=== PATIENT | male | born 1945 | race Two or more races ===

== ENCOUNTER 2019-06-20 12:45 | Outpatient (CLI) | payer MEDICARE, BC | END 2019-06-20 23:59 | disposition home or self-care (01) | LOC: WOU 12:45 | PROVIDERS: ATTEND Podiatrist Foot & Ankle Surgery | DX: L89.893 Pressure ulcer of other site, stage 3 (principal); L84 Corns and callosities; I87.2 Venous insufficiency (chronic) (peripheral); M21.171 Varus deformity, not elsewhere classified, right ankle; R60.0 Localized edema; M20.41 Other hammer toe(s) (acquired), right foot; I10 Essential (primary) hypertension; Z87.891 Personal history of nicotine dependence | CPT/HCPCS: 87070; 87077; 87186; G0463 ==

== ENCOUNTER 2019-06-27 11:21 | Outpatient (CLI) | payer MEDICARE, BC | END 2019-06-27 23:59 | disposition home or self-care (01) | LOC: MRI 11:21 | PROVIDERS: ATTEND Podiatrist Foot & Ankle Surgery | DX: L97.519 Non-pressure chronic ulcer of other part of right foot with unspecified severity (principal); M19.071 Primary osteoarthritis, right ankle and foot | CPT/HCPCS: 73718-TC ==

== ENCOUNTER 2021-01-26 07:57 | Outpatient (CLI) | payer MEDICARE, BC | END 2021-01-26 23:59 | disposition home or self-care (01) | LOC: LAB 07:57 | PROVIDERS: ATTEND Podiatrist Foot & Ankle Surgery | DX: Z01.812 Encounter for preprocedural laboratory examination (principal); Z20.822 Contact with and (suspected) exposure to COVID-19 | CPT/HCPCS: C9803; U0003 ==

== ENCOUNTER 2021-01-29 06:09 | Inpatient (IN) | payer MEDICARE, BC ==
[~2021-01-29] VITALS: Ht 170.2 cm; Wt 94.3 kg
--- NOTE | 2021-01-29 06:45 | NUR ---
MS RN: DAY SURGERY Patient arrived to unit, schedule for Day surgery today. Patient is A/O x4. Right foot with DIAZ wrap. Patient consented procedure- Debridement wound Right foot. Procedure checklist completed with the patient. Patient transferred to OR via bed accompanied by transporter. Report given to JUAN CARLOS Mcnair for possible admission post surgery.
[2021-01-29] MEDS ORDERED: ANESTHESIA TRAY IN PYXIS 1 EA TRAY MC ONE (07:02)
[2021-01-29] MEDS ORDERED: BUPIVACAINE 0.5 % PF 150 MG/30 ML VIAL ONE (07:03)
[2021-01-29] MEDS ORDERED: VANCOMYCIN 1 GM VIAL ONE (07:03)
[2021-01-29] MEDS ORDERED: LIDOCAINE HCL/MPF 1% 30 ML VIAL IJ ONE (07:03)
[2021-01-29] MEDS ORDERED: ROCURONIUM BROMIDE 50 MG/5 ML ONE (07:32)
[2021-01-29] MEDS ORDERED: FENTANYL PF 100MCG/2ML AMPUL ONE ×2 (07:32→07:33)
--- NOTE | 2021-01-29 07:38 | NUR ---
MS/RN OPENING NOTES RECEIVED REPORT FROM EDWARD RANGEL SOLAR ENERGY INSTALLATION MANAGER. PATIENT IS OUT IN THE UNIT FOR SURGERY.
[2021-01-29] MEDS ORDERED: LISI40TA13 PO (07:45)
[2021-01-29] MEDS ORDERED: HYDR25TA4 PO (07:45)
[2021-01-29] MEDS ORDERED: DESV50TA20 PO (07:45)
[2021-01-29] MEDS ORDERED: ALLO300T2 PO (07:45)
[2021-01-29] MEDS ORDERED: ANAS1TAB50 PO (07:45)
[2021-01-29] MEDS ORDERED: TAMS-12 PO (07:45)
[2021-01-29] MEDS ORDERED: TOBRAMYCIN 80 MG/2 ML VIAL ONE ×2 (07:51→07:52)
[2021-01-29] MEDS ORDERED: GENTAMICIN 80 MG/2 ML VIAL ONE (09:10)
[2021-01-29] MEDS ORDERED: HOME MED MISCELLANEOUS PO SCH (09:20)
[2021-01-29] MEDS ORDERED: ALBU8.5H8 IH (10:42)
[2021-01-29] MEDS ORDERED: AZEL137S7 NS (10:42)
[2021-01-29] MEDS ORDERED: TEST100V5 IM (10:42)
[2021-01-29] MEDS ORDERED: FLUT16SP NS (10:42)
[2021-01-29] MEDS ORDERED: HYDR-3980 PO (10:42)
[2021-01-29] MEDS ORDERED: FAMO20TA8 PO (10:42)
--- NOTE | 2021-01-29 11:01 | NUR ---
MS/RN NOTES RECEIVED REPORT FROM ANGIE ALIGNMENT SPECIALIST. PATIENT IS ON ROOM AIR SATURATION 99%. PATIENT IN NO APPARENT RESPIRATORY DISTRESS NOTED. NO COMPLAINED OF PAIN NOTED AT THIS TIME. POST OP ASSESSMENT WAS DONE. VITAL SIGN BP 113/70 P 90 TEMP 97.8. MEDICATIONS WAS FAXED BY ANGIE ALIGNMENT SPECIALIST AT PHARMACY. DOCTOR ALEAH ORDER VITAL SIGN ROUTINE ACTIVITY ELEVATE RIGHT FOOT. WILL CONTINUE TO MONITOR.
[2021-01-29] MEDS ORDERED: HYDROCODONE/APAP 5/325MG TABLET PO PRN ×2 (11:30→12:30)
[2021-01-29] MEDS ORDERED: ONDANSETRON HCL/PF 4 MG/2 ML VIAL IVP PRN ×2 (11:30→12:30)
[2021-01-29] MEDS ORDERED: MORPHINE SULFATE INJ 2 MG/ML DISP.SYRIN IV PRN (11:30)
[2021-01-29] MEDS ORDERED: ZOLPIDEM TARTRATE 5 MG TABLET PO PRN (12:30)
[2021-01-29] MEDS ORDERED: ACETAMINOPHEN 325 MG TABLET PO PRN (12:30)
[2021-01-29] MEDS ORDERED: HYDROCODONE/APAP 10/325MG TABLET PO PRN (12:30)
[2021-01-29] MEDS ORDERED: [UNRECOGNIZED DRUG - OTHER] IM SCH (12:30)
[2021-01-29] MEDS ORDERED: MAG HYDROX/AL HYDROX/SIMETH 30 ML UDC PO PRN (12:30)
[2021-01-29] MEDS ORDERED: AZELASTINE NASAL SPRAY 30 ML BOTTLE NS SCH (12:30)
[2021-01-29] MEDS ORDERED: ALBUTEROL SULFATE INH 18 GM HFA.AER.AD IH PRN (12:30)
[2021-01-29] MEDS ORDERED: MAGNESIUM HYDROXIDE 30 ML UDC PO PRN (12:30)
[2021-01-29] MEDS ORDERED: Z GUARD REMEDY 2 OZ OINT TP PRN (12:30)
[2021-01-29] MEDS ORDERED: TESTOSTERONE CYPIONATE IM SCH (12:30)
[2021-01-29] MEDS ORDERED: FLUTICASONE PROPIONATE 16 GM BOTTLE NS PRN (12:30)
[2021-01-29] MEDS ORDERED: PIPERACILLIN /TAZOBACTAM 3.375 G in IV D5W 100 ML IV SCH (13:00)
[2021-01-29 14:35] LABS: CALCIUM, SERUM 8.6 mg/dL (8.5-10.1); CARBON DIOXIDE 26 mmol/L (21-32); CHLORIDE 105 mmol/L (98-107); CREATININE 1.7 mg/dL (0.6-1.3); GLUCOSE 174 mg/dL (74-106); POTASSIUM 4.9 mmol/L (3.5-5.1); SODIUM SERUM 140 mmol/L (136-145); UREA NITROGEN, BLOOD 28 mg/dL (7-18)
[2021-01-29] MEDS ORDERED: VANCOMYCIN 1.25 GM in IV D5W 250 ML IV ONE (15:00)
[2021-01-29 16:00] VITALS: BP 101/57
[2021-01-29] MEDS: CEFTRIAXONE 1 G in IV D5W 50 ML IV SCH (17:00)
--- NOTE | 2021-01-29 17:25 | NUR ---
RN Notes Patient complained of pain. Morphine 2mg=1ml given via IV. Will continue to monitor.
[2021-01-29] MEDS ORDERED: FAMOTIDINE (20 MG) 20 MG TABLET PO SCH (18:44)
--- NOTE | 2021-01-29 18:50 | NUR ---
MS/RN NOTES PATIENT DID NOT TAKE THE ZYLOPRIM 300 MG 3TAB PO AND PEPCID 20 MG 1 TAB PATIENT WANT THE MEDICATION LATER TONIGHT. ENDORSED TO GREG CREW TEAM MEMBER RN.
[2021-01-29] MEDS: ALLOPURINOL 100 MG TABLET PO SCH (18:52)
--- NOTE | 2021-01-29 19:15 | NUR ---
MS RN OPENING NOTE PATIENT IN BED RESTING, EASILY AWAKENED. A/O X 4. PATIENT BREATHING EVEN AND UNLABORED. NO C/O PAIN OR DISCOMFORT AT THIS TIME. S/P RIGHT FOOT 5TH RAY AMPUTATION. DRESSING CLEAN AND DRY. SAFETY MEASURES IN PLACE: BED IN LOCKED AND LOWEST POSITION, CALL LIGHT WITHIN REACH. ENCOURAGED PATIENT TO CALL IF NEEDED. WILL MONITOR PATIENT CLOSELY.
--- NOTE | 2021-01-29 19:23 | NUR ---
MS/RN CLOSING NOTES PATIENT IS ON BED ALERT AND ORIENTED X 4.PATIENT IS ON ROOM AIR SATURATION 98%. PATIENT IN NO APPARENT RESPIRATORY DISTRESS NOTED. NO COMPLAINED OF PAIN NOTED AT THIS TIME. SEEN AND EXAMINED BY MD WITH ORDERS MADE AND CARRIED OUT. ALL DUE MEDICATIONS WAS GIVEN. SAFETY PRECAUTIONS WAS IN PLACED. ALL NEEDS WAS ATTENDED. BED IN LOWEST POSITION AND LOCKED. SIDERAILS UP X2. CALL LIGHT WITHIN REACH. WILL ENDORSED TO CASTING MACHINE OPERATOR AUTOMATIC FOR LONNIE.
[2021-01-29 20:00] VITALS: BP 118/70
[2021-01-29] MEDS: DESVENLAFAXINE 50 MG PO SCH (20:05)
[2021-01-29] MEDS ORDERED: TAMSULOSIN 0.4 MG CAP.SR.24H PO SCH (20:15)
[2021-01-29] MEDS: HYDROCODONE/APAP 5/325MG TABLET PO PRN (23:12)
--- NOTE | 2021-01-29 23:12 | NUR ---
MS RN NOTE PATIENT C/O PAIN ON RIGHT FOOT 7/10 ON PAIN SCALE OF 0-10. NORCO 2 TABS GIVEN OR PAIN 6-8.
[2021-01-30 06:10] LABS: CALCIUM, SERUM 8.4 mg/dL (8.5-10.1); CARBON DIOXIDE 28 mmol/L (21-32); CHLORIDE 105 mmol/L (98-107); CREATININE 1.5 mg/dL (0.6-1.3); GLUCOSE 108 mg/dL (74-106); MAGNESIUM 1.8 mg/dL (1.8-2.4); PHOSPHORUS 3.2 mg/dL (2.5-4.9); POTASSIUM 4.3 mmol/L (3.5-5.1); SODIUM SERUM 139 mmol/L (136-145); UREA NITROGEN, BLOOD 21 mg/dL (7-18)
[2021-01-30 06:13] LABS: CHOLESTEROL 110 mg/dL (<200); HDL CHOLESTEROL 46 mg/dL (40-60); LDL 56 mg/dL (0-99); TRIGLYCERIDES 89 mg/dL (30-150)
[2021-01-30 06:27] LABS: BASOPHILS % (AUTO) 0.2 % (0.0-2.0); EOSINOPHILS % (AUTO) 0.9 % (0.0-6.0); HEMATOCRIT 41 % (39-51); HEMOGLOBIN 13.2 g/dL (13.5-17.5); LYMPHOCYTES # (AUTO) 1.6 /CMM (0.8-4.8); LYMPHOCYTES % (AUTO) 16.9 % (20.0-44.0); MEAN CORPUSCULAR HGB CONC 32 g/dl (31.0-36.0); MEAN CORPUSCULAR VOLUME 90 fL (80-96); MONOCYTES % (AUTO) 11.1 % (2.0-12.0); NEUTROPHILS # (AUTO) 6.5 /CMM (1.8-8.9); NEUTROPHILS % (AUTO) 70.9 % (43.0-81.0); PLATELET COUNT (AUTO) 180 /CMM (150-450); RED BLOOD CELL COUNT(AUTO) 4.62 MIL/uL (4.5-6.0); WHITE BLOOD COUNT (AUTO) 9.2 K/uL (4.3-11.0)
[2021-01-30] MEDS: HYDROCODONE/APAP 5/325MG TABLET PO PRN ×3 (06:32→22:49)
--- NOTE | 2021-01-30 06:33 | NUR ---
MS RN NOTE Patient given norco for right foot pain of 8/10 on pain scale of 0-10.
--- NOTE | 2021-01-30 06:52 | NUR ---
MS RN CLOSING NOTE PATIENT IN BED RESTING, AWAKE. A/O X 4. PATIENT BREATHING EVEN AND UNLABORED. NO C/O PAIN OR DISCOMFORT AT THIS TIME. RECENTLY GAVE NORCO FOR PAIN AT 0630. S/P RIGHT FOOT 5TH DIGIT AMPUTATION AND 5TH METATARSAL BIOPSY. DRESSING CLEAN AND DRY ON RIGHT FOOT. RIGHT FOOT ELEVATED AT ALL TIMES. SAFETY MEASURES MAINTAINED: BED IN LOCKED AND LOWEST POSITION, CALL LIGHT WITHIN REACH. ALL NEEDS MET AND ATTENDED. PAIN MANAGED DURING THE SHIFT. WILL ENDORSE TO DAY SHIFT NURSE FOR LONNIE.
--- NOTE | 2021-01-30 07:20 | NUR ---
MS OPENING NOTE PATIENT RESTING IN BED, ALERT AND ORIENTED X 4. NO ACUTE DISTRESS OR SHORTNESS OF BREATH NOTED. PATIENT'S RIGHT FOOT IS ELEVATED. IV CLEAN, DRY AND INTACT, SALINE LOCKED. SAFETY PRECAUTIONS IN PLACE, BED LOCKED IN LOWEST POSITION, CALL LIGHT WITHIN REACH, CALL LIGHT WITHIN REACH. WILL CONTINUE TO MONITOR
[2021-01-30 08:00] VITALS: BP 110/67
--- NOTE | 2021-01-30 08:18 | NUR ---
MS RN NOTES PATIENT SEEN AND EVALUATED BY DR. DELGADO. DRESSING CHANGED AT BEDSIDE. PATIENT TOLERATED WELL. NO NEW ORDERS MADE AT THIS TIME
--- NOTE | 2021-01-30 08:22 | NUR ---
MS RN NOTES PATIENT SEEN AND EVALUATED BY DR. GAN WITH NEW ORDER FOR NS @ 75 MLS/HR. ORDER CLARIFIED AND READBACK WITH MD, NOTED AND CARRIED OUT.
[2021-01-30] MEDS: IV NS 0.9% 1,000 ML IV PRN (08:37)
[2021-01-30] MEDS ORDERED: ALLOPURINOL 100 MG TABLET PO SCH (09:00)
[2021-01-30] MEDS ORDERED: FAMOTIDINE (20 MG) 20 MG TABLET PO SCH (09:00)
[2021-01-30] MEDS ORDERED: DESVENLAFAXINE 50 MG PO SCH (09:00)
[2021-01-30] MEDS: DESVENLAFAXINE 50 MG PO SCH (09:01)
[2021-01-30] MEDS: ALLOPURINOL 100 MG TABLET PO SCH (09:01)
[2021-01-30] MEDS: ENSURE CLEAR 237 ML LIQUID (MIX BERRY) PO SCH ×2 (09:02→17:38)
[2021-01-30] MEDS ORDERED: LISI40TA13 PO (09:14)
[2021-01-30] MEDS ORDERED: HYDR25TA4 PO (09:14)
[2021-01-30] MEDS: TAMSULOSIN 0.4 MG CAP.SR.24H PO SCH (10:18)
[2021-01-30] MEDS: HYDROCHLOROTHIAZIDE 25 MG TABLET PO SCH (10:19)
[2021-01-30] MEDS: LISINOPRIL (20MG) 20 MG TABLET PO SCH (10:19)
[2021-01-30] MEDS: VANCOMYCIN 1.25 GM in IV D5W 250 ML IV SCH (11:02)
[2021-01-30] MEDS: ZINC SULFATE 220 MG CAPSULE PO SCH (12:49)
[2021-01-30] MEDS: ASCORBIC ACID 500 MG TABLET PO SCH (12:49)
[2021-01-30] MEDS: FAMOTIDINE (20 MG) 20 MG TABLET PO SCH (12:49)
[2021-01-30 16:00] VITALS: BP 114/64
[2021-01-30] MEDS ORDERED: ALBUTEROL SULFATE INH 18 GM HFA.AER.AD IH PRN (16:30)
[2021-01-30 16:35] LABS: CALCIUM, SERUM 8.7 mg/dL (8.5-10.1); CARBON DIOXIDE 30 mmol/L (21-32); CHLORIDE 105 mmol/L (98-107); CREATININE 1.6 mg/dL (0.6-1.3); GLUCOSE 97 mg/dL (74-106); POTASSIUM 4.4 mmol/L (3.5-5.1); SODIUM SERUM 141 mmol/L (136-145); UREA NITROGEN, BLOOD 23 mg/dL (7-18)
[2021-01-30] MEDS: ACIDOPHILUS/BULGARICUS 1 EACH GRAN.PACK PO SCH (17:40)
[2021-01-30] MEDS: CEFTRIAXONE 1 G in IV D5W 50 ML IV SCH (17:41)
--- NOTE | 2021-01-30 19:00 | NUR ---
MS RN CLOSING NOTE PATIENT SLEEPING IN BED, ALERT AND ORIENTED X 4. NO ACUTE DISTRESS OR SHORTNESS OF BREATH NOTED. NEEDS ATTENDED AND ANTICIPATED. RIGHT LOWER EXTREMITY ELEVATED, DRESSING CLEAN, DRY AND INTACT. SAFETY MEASURES IN PLACE, CALL LIGHT WITHIN REACH, BED LOCKED IN LOWEST POSITION. WILL ENDORSE TO GRANITE BLOCK PAVER NURSE FOR
--- NOTE | 2021-01-30 19:10 | NUR ---
RN opening notes Received Pt from morning nurse. Pt is resting in bed comfortable. Pt is alert and orientedX4. Pt is using Cpap machine at this time. Pt has his own Cpap machine. No SOB. No S/S of distress notes. IV site at RFA# 20 is clean, intact and infusing well NS@75 ml/hr. R foot dressing is clean, intact and dry and elevated. Safety precautions is maintained. Bed at low position, brakes locked, side rails upX2, hob elevated, urinal at the bedside and call light is within reach. Will continue to monitor.
[2021-01-30 20:00] VITALS: BP 110/59
--- NOTE | 2021-01-30 21:00 | NUR ---
RN notes Pt is requesting on SCD compression and anticoagulant. Informed and notified Dr. Whipple. ordered lovenox 40 mg//SQ/daily. Order carried out. charge nurse is aware and informed. Placed SCD compression on both legs per Pt requested. Pt verbalize understanding. Will continue to monitor.
[2021-01-30] MEDS: ENOXAPARIN SODIUM 40 MG/0.4 ML DISP.SYRIN SQ SCH (21:42)
--- NOTE | 2021-01-30 22:49 | NUR ---
RN notes Pt is complaining of pain on R foot and requesting norco 2 tabs. Administered norco5-325 tab/2 tabs/po/prn as ordered for pain per pt requested. Safety precautions is maintained. Will continue to monitor.
[2021-01-31] MEDS: IV NS 0.9% 1,000 ML IV PRN ×2 (00:52→21:20)
[2021-01-31 04:20] LABS: BASOPHILS # (AUTO) 0.1 /CMM (0.0-0.2); EOSINOPHILS % (AUTO) 4.6 % (0.0-6.0); HEMATOCRIT 43 % (39-51); HEMOGLOBIN 13.5 g/dL (13.5-17.5); LYMPHOCYTES # (AUTO) 1.5 /CMM (0.8-4.8); LYMPHOCYTES % (AUTO) 21.6 % (20.0-44.0); MEAN CORPUSCULAR HGB CONC 32 g/dl (31.0-36.0); MEAN CORPUSCULAR VOLUME 89 fL (80-96); MONOCYTES # (AUTO) 0.8 /CMM (0.1-1.30); MONOCYTES % (AUTO) 11.2 % (2.0-12.0); NEUTROPHILS # (AUTO) 4.2 /CMM (1.8-8.9); NEUTROPHILS % (AUTO) 61.6 % (43.0-81.0); PLATELET COUNT (AUTO) 186 /CMM (150-450); RED BLOOD CELL COUNT(AUTO) 4.77 MIL/uL (4.5-6.0); WHITE BLOOD COUNT (AUTO) 6.8 K/uL (4.3-11.0)
[2021-01-31 04:46] LABS: CALCIUM, SERUM 8.5 mg/dL (8.5-10.1); CARBON DIOXIDE 30 mmol/L (21-32); CHLORIDE 105 mmol/L (98-107); CREATININE 1.4 mg/dL (0.6-1.3); GLUCOSE 90 mg/dL (74-106); POTASSIUM 3.7 mmol/L (3.5-5.1); SODIUM SERUM 141 mmol/L (136-145); UREA NITROGEN, BLOOD 22 mg/dL (7-18)
[2021-01-31] MEDS: VANCOMYCIN 1.25 GM in IV D5W 250 ML IV SCH ×2 (05:04→23:04)
--- NOTE | 2021-01-31 06:50 | NUR ---
RN closing notes Pt is resting in bed comfortable. Pt is alert and orientedX4. Pt is using Cpap machine at this time. No SOB. No S/S of distress notes. VS is stable. Afebrile. IV site at RFA# 20 is clean, intact and infusing well NS@75 ml/hr. R foot dressing is clean, intact and dry and elevated. Kept Pt clean, dry and comfortable. Safety precautions is maintained. Bed at low position, brakes locked, side rails upX2, hob elevated, urinal at the bedside and call light is within reach. Will endorse to morning nurse for LONNIE.
[2021-01-31] MEDS: HYDROCODONE/APAP 5/325MG TABLET PO PRN ×3 (07:09→21:15)
--- NOTE | 2021-01-31 07:21 | NUR ---
MS RN OPENING NOTES RECEIVED PATIENT IN BED, AWAKE, A/O X4. PATIENT ON ROOM AIR; BREATHING EVEN AND UNLABORED. PAIN TREATED WITH NORCO PER CERTIFIED ADAPTIVE PHYSICAL EDUCATOR NURSE. RFA IV ACCESS PRESENT AND INTACT INFUSING NS @75MLS/HR. SAFETY PRECAUTIONS IN PLACE; BED IN LOW POSITION AND LOCKED, RAILS UPX2, CALL LIGHT WITHIN REACH. WILL CONTINUE TO MONITOR PATIENT.
[2021-01-31 08:00] VITALS: BP 120/75
[2021-01-31] MEDS: FAMOTIDINE (20 MG) 20 MG TABLET PO SCH (09:05)
[2021-01-31] MEDS: HYDROCHLOROTHIAZIDE 25 MG TABLET PO SCH (09:05)
[2021-01-31] MEDS: ENSURE CLEAR 237 ML LIQUID (MIX BERRY) PO SCH ×2 (09:05→16:14)
[2021-01-31] MEDS: LISINOPRIL (20MG) 20 MG TABLET PO SCH (09:06)
[2021-01-31] MEDS: ZINC SULFATE 220 MG CAPSULE PO SCH (09:06)
[2021-01-31] MEDS: TAMSULOSIN 0.4 MG CAP.SR.24H PO SCH (09:07)
[2021-01-31] MEDS: ASCORBIC ACID 500 MG TABLET PO SCH (09:07)
[2021-01-31] MEDS: ALLOPURINOL 100 MG TABLET PO SCH (09:07)
[2021-01-31] MEDS: DESVENLAFAXINE 50 MG PO SCH (09:08)
[2021-01-31] MEDS: ACIDOPHILUS/BULGARICUS 1 EACH GRAN.PACK PO SCH ×3 (09:08→16:14)
[2021-01-31] MEDS: ANASTROZOLE 1 MG TABLET PO SCH (09:10)
[2021-01-31 16:00] VITALS: BP 134/75
[2021-01-31] MEDS: CEFTRIAXONE 1 G in IV D5W 50 ML IV SCH (16:12)
--- NOTE | 2021-01-31 18:50 | NUR ---
MS RN CLOSING NOTES PATIENT IN BED, HEAD OF BED ELEVATED, AWAKE, ALERT, ORIENTED X4, ABLE TO MAKE NEEDS KNOWN, VERBALLY RESPONSIVE. DENIES PAIN OR DISCOMFORT AT THIS TIME. ALL DUE MEDS ARE GIVEN ORDERED. ABLE TO GO TO THE BATHROOM USING A WALKER. SAFETY MEASURES IN PLACE; BED IN LOWEST LOCKED POSITION WITH SIDERAILS UP. ALL NEEDS AND CARE ATTENDED PROMPTLY. CALL LIGHT WITHIN EASY REACH. WILL ENDORSE PLAN OF CARE TO NEXT SHIFT.
--- NOTE | 2021-01-31 19:41 | NUR ---
MS/TELE/RN RECEIVED PATIENT LYING IN BED APPEAR SLEEPING WITH THE CPAP ON, APPEAR COMFORTABLE, NO SIGNS OF DISTRESS NOTED, CALL LIGHT IN REACH, BED ALARM ON FOR SAFETY, WILL MONITOR.
[2021-01-31 20:00] VITALS: BP 120/75
--- NOTE | 2021-01-31 21:05 | NUR ---
MS/TELE/RN PATIENT WAS MOVED TO ROOM 329 BECAUSE TOILET NOT FLUSHING. PATIENT REFUSED BED ALARM, PER PATIENT HE WILL CALL IF HE NEEDS HELP.
[2021-01-31] MEDS: ENOXAPARIN SODIUM 40 MG/0.4 ML DISP.SYRIN SQ SCH (21:17)
--- NOTE | 2021-02-01 02:16 | NUR ---
MS/TELE/RN PATIENT IS SLEEPING AT THIS TIME, APPEAR COMFORTABLE, NO SIGNS OF DISTRESS NOTED, CALL LIGHT IN REACH, WILL CONTINUE TO MONITOR.
[2021-02-01] MEDS: HYDROCODONE/APAP 5/325MG TABLET PO PRN ×3 (06:19→22:07)
[2021-02-01 07:20] LABS: BASOPHILS % (AUTO) 0.6 % (0.0-2.0); EOSINOPHILS % (AUTO) 4.2 % (0.0-6.0); HEMATOCRIT 44 % (39-51); HEMOGLOBIN 14.2 g/dL (13.5-17.5); LYMPHOCYTES # (AUTO) 1.7 /CMM (0.8-4.8); LYMPHOCYTES % (AUTO) 21.7 % (20.0-44.0); MEAN CORPUSCULAR HGB CONC 33 g/dl (31.0-36.0); MEAN CORPUSCULAR VOLUME 89 fL (80-96); MONOCYTES # (AUTO) 0.9 /CMM (0.1-1.30); MONOCYTES % (AUTO) 10.6 % (2.0-12.0); NEUTROPHILS # (AUTO) 5.1 /CMM (1.8-8.9); NEUTROPHILS % (AUTO) 62.9 % (43.0-81.0); PLATELET COUNT (AUTO) 212 /CMM (150-450)
--- NOTE | 2021-02-01 07:39 | NUR ---
MS RN OPENING NOTES RECEIVED PATIENT AWAKE IN BED IN NO ACUTE SIGNS OF DISTRESS. A/O X4. ABLE TO MAKE NEEDS KNOWN, DENIES PAIN OR ANY DISCOMFORTS AT THIS TIME. ON ROOM AIR, BREATHING EVEN AND UNLABORED. LFA IV ACCESS G#20 INTACT AND PATENT WITH IVF INFUSING NS @75MLS/HR. DRESSING ON RIGHT FOOT CDI AND ELEVATED WITH PILLOWS. SAFETY PRECAUTIONS IN PLACE: BED IN LOW POSITION AND LOCKED, UPPER RAILS UPX2 AND CALL LIGHT WITHIN REACH. WILL CONTINUE TO MONITOR PATIENT.
--- NOTE | 2021-02-01 07:44 | NUR ---
MS/TELE/RN AWAKE, ALERT, ORIENTED, [id number], NO DISTRESS NOTED, ALL NEEDS ATTENDED AT THIS TIME, ENDORSED TO JUAN CARLOS LUNA, FOR CONTINUITY OF CARE.
[2021-02-01 08:00] VITALS: BP 99/63
[2021-02-01] MEDS: ENSURE CLEAR 237 ML LIQUID (MIX BERRY) PO SCH ×2 (08:00→17:25)
[2021-02-01] MEDS: LISINOPRIL (20MG) 20 MG TABLET PO SCH (09:00)
[2021-02-01] MEDS: HYDROCHLOROTHIAZIDE 25 MG TABLET PO SCH (09:00)
[2021-02-01] MEDS: TAMSULOSIN 0.4 MG CAP.SR.24H PO SCH (10:09)
[2021-02-01] MEDS: ALLOPURINOL 100 MG TABLET PO SCH (10:11)
[2021-02-01] MEDS: FAMOTIDINE (20 MG) 20 MG TABLET PO SCH (10:11)
[2021-02-01] MEDS: ZINC SULFATE 220 MG CAPSULE PO SCH (10:12)
[2021-02-01] MEDS: ASCORBIC ACID 500 MG TABLET PO SCH (10:12)
[2021-02-01] MEDS: DESVENLAFAXINE 50 MG PO SCH (10:19)
[2021-02-01] MEDS: ACIDOPHILUS/BULGARICUS 1 EACH GRAN.PACK PO SCH (10:20)
[2021-02-01 14:03] LABS: CALCIUM, SERUM 8.5 mg/dL (8.5-10.1); CREATININE 1.2 mg/dL (0.6-1.3); POTASSIUM 3.3 mmol/L (3.5-5.1)
[2021-02-01] MEDS ORDERED: POTASSIUM CHLORIDE 20 MEQ TAB.PRT.SR PO SCH (15:00)
--- NOTE | 2021-02-01 15:50 | NUR ---
RN NOTES PT NOTED WITH LOW LEVEL POTASSIUM 3.3 TODAY, ADMINISTERED K-DUR 20 MEQ PO ORDERED. WILL CONTINUE TO MONITOR.
[2021-02-01 16:00] VITALS: BP 129/79
--- NOTE | 2021-02-01 16:11 | NUR ---
RN NOTES PT C/O ACHING AND THROBBING PAIN TO RIGHT FOOT, 8/10 SCALE. PRN NORCO 5/325 MG X2 PO GIVEN AT 1405. WILL CONTINUE TO MONITOR AND REASSESS PT.
[2021-02-01] MEDS: CEFTRIAXONE 1 G in IV D5W 50 ML IV SCH (16:36)
[2021-02-01] MEDS: ACIDOPHILUS/BULGARICUS 1 EACH TAB.CHEW PO SCH (17:18)
--- NOTE | 2021-02-01 17:30 | NUR ---
RN NOTES PT C/O NAUSEA AND REQUESTED FOR ANTIEMETIC, PRN ZOFRAN 4MG/2ML IVP ADMINISTERED AT 1723. WILL CONTINUE TO MONITOR AND REASSESS PT.
[2021-02-01] MEDS: VANCOMYCIN 1.25 GM in IV D5W 250 ML IV SCH (17:32)
--- NOTE | 2021-02-01 18:49 | NUR ---
MS RN CLOSING NOTES PATIENT IN BED WATCHING TV AT THIS TIME. A/O X4. ABLE TO MAKE NEEDS KNOWN. TOLERATING ROOM AIR, RESPIRATIONS ARE EVEN AND UNLABORED, NO SOB NOTED DURING SHIFT. IV ACCESS ON LFA G#20 INTACT AND PATENT, IV ATB VANCOMYCIN INFUSING AT 125ML/HR AT THIS TIME, NO S/S OF INFILTRATION AT SITE NOTED. DRESSING ON RIGHT FOOT C/D/I AND ELEVATED WITH PILLOWS. ALL NEEDS AND CARE ATTENDED WELL. SAFETY PRECAUTIONS IN PLACE: BED IN LOW POSITION AND LOCKED, UPPER RAILS UPX2, BEDSIDE TABLE AND CALL LIGHT WITHIN EASY REACH OF PT. WILL ENDORSE LONNIE TO COMMISSARY CLERK NURSE.
[2021-02-01 20:00] VITALS: BP 123/68
--- NOTE | 2021-02-01 20:00 | NUR ---
MS RN OPENING NOTE RECEIVED PT AWAKE IN BED. A/O X4. PT STABLE ON ROOM AIR. NO SOB NOTED. NO S/S OF RESPIRATORY DISTRESS. PT IS AMBULATORY WITH WALKER. PT HAS NO C/O PAIN AT THIS TIME. IV ACCESS IN LFA #20G, INFUSING VANCOMYCIN AT 125 ML/HR. IV IS INTACT AND PATENT. DRESSING ON RIGHT FOOT C/D/I AND ELEVATED WITH PILLOWS. SAFETY MEASURES MAINTAINED. BED IN LOWEST LOCKED POSITION, HOB ELEVATED, SIDE RAILS UP X2. CALL LIGHT AND TABLE WITHIN REACH. WILL CONTINUE WITH PLAN OF CARE.
[2021-02-01] MEDS: ENOXAPARIN SODIUM 40 MG/0.4 ML DISP.SYRIN SQ SCH (20:23)
[2021-02-01] MEDS ORDERED: AMPICILLIN 1 GM VIAL ONE (21:52)
[2021-02-01] MEDS: AMPICILLIN 1 GM in IV NS 0.9% 50 ML IV SCH (21:57)
--- NOTE | 2021-02-01 22:07 | NUR ---
MS RN PAIN PT C/O SHARP PAIN IN RIGHT FOOT, RATED 8/10 ON PAIN SCALE. VS BP 123/68, HR 95, RR 20, T 97.9, SPO2 97%. PER PT REQUEST, ADMINISTERED NORCO 5-325 MG 2 TABS PO Q4H PRN AT THIS TIME. WILL CONTINUE TO MONITOR.
[2021-02-02] MEDS: AMPICILLIN 1 GM in IV NS 0.9% 50 ML IV SCH ×3 (05:09→21:38)
[2021-02-02] MEDS: HYDROCODONE/APAP 5/325MG TABLET PO PRN ×3 (06:47→19:35)
--- NOTE | 2021-02-02 06:47 | NUR ---
MS RN PAIN PT C/O SHARP PAIN IN RIGHT FOOT, RATED 8/10 ON PAIN SCALE. VS STABLE. PER PT REQUEST, ADMINISTERED NORCO 5-325 MG 2 TABS PO Q4H PRN AT THIS TIME. WILL CONTINUE TO MONITOR.
--- NOTE | 2021-02-02 07:01 | NUR ---
MS RN CLOSING NOTE PT IS AWAKE IN BED AT THIS TIME. A/O X4. PT IS AMBULATORY WITH WALKER. PT IS STABLE ON ROOM AIR. NO SOB NOTED. NO S/S OF RESPIRATORY DISTRESS. IV ACCESS IS INTACT, PATENT, AND FLUSHING WELL. ALL NEEDS HAVE BEEN MET. PAIN MANAGEMENT ADMINISTERED PER ORDER. SAFETY PRECAUTIONS MAINTAINED AT ALL TIMES. BED IN LOWEST LOCKED POSITION, HOB ELEVATED, SIDE RAILS UP X2. CALL LIGHT AND TABLE WITHIN REACH. WILL ENDORSE TO ONCOMING NURSE FOR CONTINUITY OF CARE.
[2021-02-02 07:14] LABS: BASOPHILS % (AUTO) 0.5 % (0.0-2.0); EOSINOPHILS % (AUTO) 3.6 % (0.0-6.0); HEMATOCRIT 41 % (39-51); HEMOGLOBIN 13.2 g/dL (13.5-17.5); LYMPHOCYTES # (AUTO) 1.2 /CMM (0.8-4.8); LYMPHOCYTES % (AUTO) 14.6 % (20.0-44.0); MEAN CORPUSCULAR HGB CONC 33 g/dl (31.0-36.0); MEAN CORPUSCULAR VOLUME 89 fL (80-96); MONOCYTES # (AUTO) 0.9 /CMM (0.1-1.30); MONOCYTES % (AUTO) 11.3 % (2.0-12.0); NEUTROPHILS # (AUTO) 5.7 /CMM (1.8-8.9); PLATELET COUNT (AUTO) 191 /CMM (150-450); RED BLOOD CELL COUNT(AUTO) 4.59 MIL/uL (4.5-6.0); WHITE BLOOD COUNT (AUTO) 8.1 K/uL (4.3-11.0)
[2021-02-02 08:00] VITALS: BP 136/82
[2021-02-02] MEDS: ENSURE CLEAR 237 ML LIQUID (MIX BERRY) PO SCH ×2 (08:00→17:15)
--- NOTE | 2021-02-02 09:00 | NUR ---
RN NOTE ENDORSEMENT GIVEN BY CORTEZ FOR PATIENT. PATIENT IS AWAKE A/O X 4. PATIENT IS ON ROOM AIR. NO SYMPTOMS OF DISTRESS NOTED. PATIENT IS AMBULATORY WITH WALKER. PATIENT HAS RIGHT FOOT WOUND WRAPPED. PATIENT HAS LFA #20 GAUGE PATENT AND INTACT. SAFETY MEASURES ARE IN PLACE. BED IS LOW LOCKED AND CALL LIGHT WITHIN REACH. WILL CONTINUE TO MONITOR.
[2021-02-02] MEDS: TAMSULOSIN 0.4 MG CAP.SR.24H PO SCH (09:52)
[2021-02-02] MEDS: ZINC SULFATE 220 MG CAPSULE PO SCH (09:52)
[2021-02-02] MEDS: ACIDOPHILUS/BULGARICUS 1 EACH TAB.CHEW PO SCH ×3 (09:52→16:14)
[2021-02-02] MEDS: FAMOTIDINE (20 MG) 20 MG TABLET PO SCH (09:53)
[2021-02-02] MEDS: ALLOPURINOL 100 MG TABLET PO SCH (09:53)
[2021-02-02] MEDS: ASCORBIC ACID 500 MG TABLET PO SCH (09:53)
[2021-02-02] MEDS: ANASTROZOLE 1 MG TABLET PO SCH (09:54)
[2021-02-02] MEDS: LISINOPRIL (20MG) 20 MG TABLET PO SCH (09:54)
[2021-02-02] MEDS: HYDROCHLOROTHIAZIDE 25 MG TABLET PO SCH (09:54)
[2021-02-02] MEDS: DESVENLAFAXINE 50 MG PO SCH (10:00)
[2021-02-02 13:25] LABS: CALCIUM, SERUM 8.5 mg/dL (8.5-10.1); CREATININE 1.1 mg/dL (0.6-1.3); POTASSIUM 3.5 mmol/L (3.5-5.1)
--- NOTE | 2021-02-02 15:03 | NUR ---
RN NOTES RECEIVED ORDER FOR C-DIFF SPECIMEN. OBTAINED SPECIMEN. FILLED OUT NEEDED FORMS. THE SPECIMEN WAS DELIVERED TO LABORATORY.
--- NOTE | 2021-02-02 18:36 | NUR ---
MS RN CLOSING NOTES PT IS AWAKE IN BED AT THIS TIME. A/O X4. PT IS AMBULATORY WITH WALKER. PT IS STABLE ON ROOM AIR. NO SOB NOTED. NO S/S OF RESPIRATORY DISTRESS. IV ACCESS ON LFA#20 GAUGE IS INTACT, PATENT, AND FLUSHING WELL. ALL NEEDS HAVE BEEN MET. PAIN MANAGEMENT ADMINISTERED PER ORDER. SAFETY PRECAUTIONS MAINTAINED AT ALL TIMES. BED IN LOWEST LOCKED POSITION, HOB ELEVATED, SIDE RAILS UP X2. CALL LIGHT AND TABLE WITHIN REACH
--- NOTE | 2021-02-02 19:35 | NUR ---
MS RN PAIN PT C/O SHARP PAIN IN RIGHT FOOT, RATED 8/10 ON PAIN SCALE. VS BP 125/83, HR 90, RR 18, T 98.1, SPO2 100%. PER PT REQUEST, ADMINISTERED NORCO 5-325 MG 2 TABS PO Q4H PRN AT THIS TIME. WILL CONTINUE TO MONITOR.
[2021-02-02 20:00] VITALS: BP 125/83
--- NOTE | 2021-02-02 20:00 | NUR ---
MS RN OPENING NOTE RECEIVED PT AWAKE IN BED. A/O X4. PT STABLE ON ROOM AIR. NO SOB NOTED. NO S/S OF RESPIRATORY DISTRESS. PT IS AMBULATORY WITH WALKER. PT HAS NO C/O PAIN AT THIS TIME. IV ACCESS IN LFA #20G, INTACT AND PATENT. DRESSING ON RIGHT FOOT C/D/I AND ELEVATED WITH PILLOWS. SAFETY MEASURES MAINTAINED. BED IN LOWEST LOCKED POSITION, HOB ELEVATED, SIDE RAILS UP X2. CALL LIGHT AND TABLE WITHIN REACH. WILL CONTINUE WITH PLAN OF CARE.
[2021-02-02] MEDS: ENOXAPARIN SODIUM 40 MG/0.4 ML DISP.SYRIN SQ SCH (21:37)
[2021-02-03] MEDS: HYDROCODONE/APAP 5/325MG TABLET PO PRN ×3 (03:58→15:23)
[2021-02-03] MEDS: AMPICILLIN 1 GM in IV NS 0.9% 50 ML IV SCH ×3 (05:04→19:51)
[2021-02-03 07:00] LABS: BASOPHILS % (AUTO) 0.5 % (0.0-2.0); EOSINOPHILS % (AUTO) 3.7 % (0.0-6.0); HEMATOCRIT 44 % (39-51); HEMOGLOBIN 14.2 g/dL (13.5-17.5); LYMPHOCYTES # (AUTO) 1.2 /CMM (0.8-4.8); LYMPHOCYTES % (AUTO) 16.2 % (20.0-44.0); MEAN CORPUSCULAR HGB CONC 32 g/dl (31.0-36.0); MEAN CORPUSCULAR VOLUME 89 fL (80-96); MONOCYTES # (AUTO) 0.9 /CMM (0.1-1.30); MONOCYTES % (AUTO) 11.5 % (2.0-12.0); NEUTROPHILS # (AUTO) 5.1 /CMM (1.8-8.9); NEUTROPHILS % (AUTO) 68.1 % (43.0-81.0); PLATELET COUNT (AUTO) 209 /CMM (150-450); RED BLOOD CELL COUNT(AUTO) 4.98 MIL/uL (4.5-6.0); WHITE BLOOD COUNT (AUTO) 7.5 K/uL (4.3-11.0)
[2021-02-03 08:00] VITALS: BP 123/62
[2021-02-03 08:06] LABS: CALCIUM, SERUM 8.4 mg/dL (8.5-10.1); CREATININE 1.2 mg/dL (0.6-1.3); POTASSIUM 3.7 mmol/L (3.5-5.1)
--- NOTE | 2021-02-03 08:10 | NUR ---
MS RN OPENING NOTES PATIENT IN BED, AWAKE, ALERT, ORIENTED X4, ABLE TO MAKE NEEDS KNOWN. DENIES PAIN AT THIS TIME. ON ROOM AIR, BREATHING EVEN AND NON-LABORED. LEFT FOREARM IV NOTED, INTACT, NO S/S OF INFILTRATION. RIGHT FOOT DIAZ BANDAGE INTACT. ALL NEEDS ATTENDED PROMPTLY. CALL LIGHT WITHIN REACH.
[2021-02-03] MEDS: ENSURE CLEAR 237 ML LIQUID (MIX BERRY) PO SCH ×2 (09:49→17:32)
[2021-02-03] MEDS: TAMSULOSIN 0.4 MG CAP.SR.24H PO SCH (09:50)
[2021-02-03] MEDS: HYDROCHLOROTHIAZIDE 25 MG TABLET PO SCH (09:51)
[2021-02-03] MEDS: FAMOTIDINE (20 MG) 20 MG TABLET PO SCH (09:51)
[2021-02-03] MEDS: ACIDOPHILUS/BULGARICUS 1 EACH TAB.CHEW PO SCH ×3 (09:51→17:32)
[2021-02-03] MEDS: ZINC SULFATE 220 MG CAPSULE PO SCH (09:51)
[2021-02-03] MEDS: ASCORBIC ACID 500 MG TABLET PO SCH (09:51)
[2021-02-03] MEDS: ALLOPURINOL 100 MG TABLET PO SCH (09:52)
[2021-02-03] MEDS: LISINOPRIL (20MG) 20 MG TABLET PO SCH (09:53)
[2021-02-03] MEDS: DESVENLAFAXINE 50 MG PO SCH (09:58)
--- NOTE | 2021-02-03 13:20 | NUR ---
ms rn dr. cantu came to see patient and help him changed dressing and put order for picc line insertion.
--- NOTE | 2021-02-03 13:40 | NUR ---
ms rn concrete pouring supervisor juwan called to get a consent for picc line and let her know.
--- NOTE | 2021-02-03 13:45 | NUR ---
ms rn went there to let him sign picc line consent, patient don't want to sign if he does not know who, he wants md to do it, and called juwan soaping department supervisor about patient's preference.
--- NOTE | 2021-02-03 13:50 | NUR ---
ms joleen echeverria told me that the girl Halley will be here but consent should be signed and tell that Halley is a doctor from her country and has experience doing it for 15 years already.patient is mad, "i want a doctor here from [place] to do [place] picc line".
[2021-02-03 16:00] VITALS: BP 118/75
--- NOTE | 2021-02-03 16:00 | NUR ---
ms rn supervisor concrete block plant called why did i tell him, well that's what you want me to tell him, anyway he signed the consent but wrote a lot of things at the back of the consent that he was forced to sign agaist his will, that he cannot be discharge w/o picc line, he is calling supervisor concrete block plant many times already.
--- NOTE | 2021-02-03 16:43 | NUR ---
MS RN PICC LINE NURSE CAME TO INSERT A PICC LINE. WILL CONTINUE TO MONITOR.
--- NOTE | 2021-02-03 18:28 | NUR ---
ms rn went to patient's room to give the walker and tell him that the atb iv ampicillin will be given as early as 730pm instead of 930 pm, and patient expecting to have the first dose of atb daptomycin here, major case detective called that daptomycin will be delivered at 10pm tonight,patient is aware,and suddenly patient is so angry and verbally abusive. patient shouted to me " nononono, you listen to me" shouting. i told him hold on, ill let somebody come.because he is so mad now. patient told "yes i want somebody w/ a brain, you idiot".
--- NOTE | 2021-02-04 00:16 | NUR ---
MS/TELE/RN RECEIVED PATIENT AT 1930 VERY ANGRY AND AGITATED, PER PATIENT HE NEEDS EXPLANATION OF ANTIBIOTICS THAT HE WILL GET BEFORE HE IS DISCHARGED TONIGHT AND THE ANTIBIOTICS THAT WILL BE GETTING AT HOME. EXPLANATIONS PROVIDED, PATIENT CALMED DOWN. PATIENT THEN, SIGNED AND DISCHARGE PAPER WORKS, DISCHARGE INSTRUCTIONS PROVIDED, VERBALIZED UNDERSTANDING. AMPICILLIN WAS ADMINISTERED. IV WAS REMOVED AFTER ADMINISTRATION, BELONGINGS AND HOME MEDICATION FROM THE PHARMACY WAS GIVEN BACK. PATIENT LEFT THE FLOOR AT 2030 IN STABLE CONDITION. PATIENT WAS BROUGHT BY THE BIOMEDICAL EQUIPMENT SUPPORT SPECIALIST BY WHEELCHAIR TO THE LOBBY.
[2021-02-04] MEDS ORDERED: AMPI1VIA12 (09:12)
== END 2021-02-03 20:25 | disposition home health service (06) | DRG 474 ==
LOC: DS 06:09 → MED 06:10
PROVIDERS: ADMIT Family Medicine; ATTEND Nurse Practitioner Acute Care
PROC: 0Y6M0ZF Detachment at Right Foot, Partial 5th Ray, Open Approach (ICD-10-PCS; principal; 2021-01-29)
PROC: 0QBN0ZX Excision of Right Metatarsal, Open Approach, Diagnostic (ICD-10-PCS; 2021-01-29)
PROC: 02HV33Z Insertion of Infusion Device into Superior Vena Cava, Percutaneous Approach (ICD-10-PCS; 2021-02-03)
PROC: B548ZZA Ultrasonography of Superior Vena Cava, Guidance (ICD-10-PCS; 2021-02-03)
DX: M86.671 Other chronic osteomyelitis, right ankle and foot (principal); N17.0 Acute kidney failure with tubular necrosis; L97.518 Non-pressure chronic ulcer of other part of right foot with other specified severity; G62.9 Polyneuropathy, unspecified; K21.9 Gastro-esophageal reflux disease without esophagitis; F32.9 Major depressive disorder, single episode, unspecified; N40.0 Benign prostatic hyperplasia without lower urinary tract symptoms; M10.9 Gout, unspecified; N18.9 Chronic kidney disease, unspecified; I12.9 Hypertensive chronic kidney disease with stage 1 through stage 4 chronic kidney disease, or unspecified chronic kidney disease; S92.341A Displaced fracture of fourth metatarsal bone, right foot, initial encounter for closed fracture; X58.XXXA Exposure to other specified factors, initial encounter; Y93.9 Activity, unspecified; Y92.009 Unspecified place in unspecified non-institutional (private) residence as the place of occurrence of the external cause; N13.9 Obstructive and reflux uropathy, unspecified; N40.1 Benign prostatic hyperplasia with lower urinary tract symptoms; Z87.442 Personal history of urinary calculi; Z87.891 Personal history of nicotine dependence; Z90.49 Acquired absence of other specified parts of digestive tract; K52.9 Noninfective gastroenteritis and colitis, unspecified
CPT/HCPCS: 36415; 71045-TC; 73630-TC; 76770-TC; 80048-TC; 80061-TC; 80202-TC; 83735-TC; 84100-TC; 85025-TC; 85652-TC; 86140-TC; 87070-TC; 87081-TC; 87186-TC; 88305-TC; 88311-TC; 88312-TC; 97116-TC; 97530-TC; A6209; A6403; C1713; G0378; J0290; J0690; J0696; J1100; J1580; J1650; J2270; J2405; J2543; J2704; J3010; J3260; J3370; J3490; J7030; J7040; J7060

== ENCOUNTER 2021-02-04 11:20 | Outpatient (CLI) | payer MEDICARE, BC ==
[~2021-02-04 11:20] MED LIST: ALBU8.5H8 IH; ALLO300T2 PO; AMPI1VIA12; ANAS1TAB50 PO; AZEL137S7 NS; DESV50TA20 PO; FAMO20TA8 PO; FLUT16SP NS; HYDR-3980 PO; HYDR25TA4 PO; LISI40TA13 PO; TAMS-12 PO; TEST100V5 IM
== END 2021-02-04 23:59 | disposition home health service (06) ==
LOC: WOU 11:20
PROVIDERS: ATTEND Specialist
DX: M86.671 Other chronic osteomyelitis, right ankle and foot (principal); G60.9 Hereditary and idiopathic neuropathy, unspecified; I10 Essential (primary) hypertension; Z87.891 Personal history of nicotine dependence
CPT/HCPCS: G0463

== ENCOUNTER 2021-02-06 11:35 | Outpatient (CLI) | payer MEDICARE, BC | END 2021-02-06 23:59 | disposition home health service (06) | LOC: WOU 11:35 | PROVIDERS: ATTEND Podiatrist Foot & Ankle Surgery | DX: G60.9 Hereditary and idiopathic neuropathy, unspecified (principal); L97.518 Non-pressure chronic ulcer of other part of right foot with other specified severity; M86.671 Other chronic osteomyelitis, right ankle and foot ==

== ENCOUNTER 2021-02-13 10:45 | Outpatient (CLI) | payer MEDICARE, BC ==
[2021-02-13] MEDS ORDERED: COLLAGENASE 5 GM TUBE UD TP ONE (11:27)
== END 2021-02-13 23:59 | disposition home health service (06) ==
LOC: WOU 10:45
PROVIDERS: ATTEND Podiatrist Foot & Ankle Surgery
DX: G60.9 Hereditary and idiopathic neuropathy, unspecified (principal); L97.522 Non-pressure chronic ulcer of other part of left foot with fat layer exposed; M86.671 Other chronic osteomyelitis, right ankle and foot
CPT/HCPCS: 11042

== ENCOUNTER 2021-02-17 10:41 | Outpatient (CLI) | payer MEDICARE, BC | END 2021-02-17 23:59 | disposition home or self-care (01) | LOC: RAD 10:41 | PROVIDERS: ATTEND Podiatrist Foot & Ankle Surgery | DX: L97.519 Non-pressure chronic ulcer of other part of right foot with unspecified severity (principal) | CPT/HCPCS: 73620-TC ==

== ENCOUNTER 2021-02-20 10:45 | Outpatient (CLI) | payer MEDICARE, BC ==
[2021-02-20] MEDS ORDERED: COLLAGENASE 5 GM TUBE UD TP ONE (11:21)
== END 2021-02-20 23:59 | disposition home or self-care (01) ==
LOC: WOU 10:45
PROVIDERS: ATTEND Podiatrist Foot & Ankle Surgery
DX: G60.9 Hereditary and idiopathic neuropathy, unspecified (principal); L97.512 Non-pressure chronic ulcer of other part of right foot with fat layer exposed; M86.671 Other chronic osteomyelitis, right ankle and foot; I10 Essential (primary) hypertension
CPT/HCPCS: 11042

== ENCOUNTER 2021-02-27 10:12 | Outpatient (CLI) | payer MEDICARE, BC | END 2021-02-27 23:59 | disposition home or self-care (01) | LOC: WOU 10:12 | PROVIDERS: ATTEND Podiatrist Foot & Ankle Surgery | DX: G60.9 Hereditary and idiopathic neuropathy, unspecified (principal); L97.512 Non-pressure chronic ulcer of other part of right foot with fat layer exposed; M86.671 Other chronic osteomyelitis, right ankle and foot | CPT/HCPCS: 11042 ==

== ENCOUNTER 2021-03-06 10:15 | Outpatient (CLI) | payer MEDICARE, BC ==
[2021-03-06] MEDS ORDERED: COLLAGENASE 5 GM TUBE UD TP ONE (10:42)
== END 2021-03-06 23:59 | disposition home or self-care (01) ==
LOC: WOU 10:15
PROVIDERS: ATTEND Podiatrist Foot & Ankle Surgery
DX: G60.9 Hereditary and idiopathic neuropathy, unspecified (principal); L97.512 Non-pressure chronic ulcer of other part of right foot with fat layer exposed; M86.671 Other chronic osteomyelitis, right ankle and foot; Z89.421 Acquired absence of other right toe(s)
CPT/HCPCS: 11042

== ENCOUNTER 2021-03-11 10:25 | Outpatient (CLI) | payer MEDICARE, BC ==
[2021-03-11] MEDS ORDERED: COLLAGENASE 5 GM TUBE UD TP ONE (10:47)
== END 2021-03-11 23:59 | disposition home or self-care (01) ==
LOC: WOU 10:25
PROVIDERS: ATTEND Specialist
DX: G60.9 Hereditary and idiopathic neuropathy, unspecified (principal); L97.512 Non-pressure chronic ulcer of other part of right foot with fat layer exposed; M86.671 Other chronic osteomyelitis, right ankle and foot; Z89.421 Acquired absence of other right toe(s); I10 Essential (primary) hypertension; Z87.891 Personal history of nicotine dependence
CPT/HCPCS: G0463

== ENCOUNTER 2021-03-13 10:23 | Outpatient (CLI) | payer MEDICARE, BC ==
[2021-03-13] MEDS ORDERED: COLLAGENASE 5 GM TUBE UD TP ONE (10:43)
== END 2021-03-13 23:59 | disposition home or self-care (01) ==
LOC: WOU 10:23
PROVIDERS: ATTEND Podiatrist Foot & Ankle Surgery
DX: G60.9 Hereditary and idiopathic neuropathy, unspecified (principal); L97.522 Non-pressure chronic ulcer of other part of left foot with fat layer exposed; M86.671 Other chronic osteomyelitis, right ankle and foot; L84 Corns and callosities; B35.1 Tinea unguium; Z89.421 Acquired absence of other right toe(s)
CPT/HCPCS: 11042

== ENCOUNTER 2021-03-20 10:15 | Outpatient (CLI) | payer MEDICARE, BC ==
[2021-03-20] MEDS ORDERED: COLLAGENASE 5 GM TUBE UD TP ONE (10:59)
== END 2021-03-20 23:59 | disposition home or self-care (01) ==
LOC: WOU 10:15
PROVIDERS: ATTEND Podiatrist Foot & Ankle Surgery
DX: G60.9 Hereditary and idiopathic neuropathy, unspecified (principal); L97.512 Non-pressure chronic ulcer of other part of right foot with fat layer exposed; M86.671 Other chronic osteomyelitis, right ankle and foot; L84 Corns and callosities; B35.1 Tinea unguium; Z89.421 Acquired absence of other right toe(s)
CPT/HCPCS: 11042

== ENCOUNTER 2021-03-25 09:00 | Outpatient (CLI) | payer MEDICARE, BC ==
[2021-03-25] MEDS ORDERED: COLLAGENASE 5 GM TUBE UD TP ONE (10:23)
== END 2021-03-25 23:59 | disposition home or self-care (01) ==
LOC: WOU 09:00
PROVIDERS: ATTEND Specialist
DX: M86.671 Other chronic osteomyelitis, right ankle and foot (principal); G60.9 Hereditary and idiopathic neuropathy, unspecified; L97.512 Non-pressure chronic ulcer of other part of right foot with fat layer exposed; I10 Essential (primary) hypertension; L84 Corns and callosities; B35.1 Tinea unguium; Z89.421 Acquired absence of other right toe(s); Z87.891 Personal history of nicotine dependence
CPT/HCPCS: G0463

== ENCOUNTER 2021-03-27 08:50 | Outpatient (CLI) | payer MEDICARE, BC ==
[2021-03-27] MEDS ORDERED: HYDROCORTISONE 1% CREAM 28.35 GM TUBE TP ONE (09:27)
[2021-03-27] MEDS ORDERED: COLLAGENASE 5 GM TUBE UD TP ONE (09:28)
== END 2021-03-27 23:59 | disposition home or self-care (01) ==
LOC: WOU 08:50
PROVIDERS: ATTEND Podiatrist Foot & Ankle Surgery
DX: G60.9 Hereditary and idiopathic neuropathy, unspecified (principal); L97.512 Non-pressure chronic ulcer of other part of right foot with fat layer exposed; M86.671 Other chronic osteomyelitis, right ankle and foot; L84 Corns and callosities; B35.1 Tinea unguium; Z89.421 Acquired absence of other right toe(s)
CPT/HCPCS: 11042

== ENCOUNTER 2021-04-03 08:15 | Outpatient (CLI) | payer MEDICARE, BC ==
[2021-04-03] MEDS ORDERED: COLLAGENASE 5 GM TUBE UD TP ONE (08:48)
[2021-04-03] MEDS ORDERED: HYDROCORTISONE 1% CREAM 28.35 GM TUBE TP ONE (08:50)
== END 2021-04-03 23:59 | disposition home or self-care (01) ==
LOC: WOU 08:15
PROVIDERS: ATTEND Podiatrist Foot & Ankle Surgery
DX: L97.512 Non-pressure chronic ulcer of other part of right foot with fat layer exposed (principal); G60.9 Hereditary and idiopathic neuropathy, unspecified; M86.671 Other chronic osteomyelitis, right ankle and foot; L84 Corns and callosities; B35.1 Tinea unguium; Z89.421 Acquired absence of other right toe(s); I10 Essential (primary) hypertension
CPT/HCPCS: 11042

== ENCOUNTER 2021-04-10 08:00 | Outpatient (CLI) | payer MEDICARE, BC | END 2021-04-10 23:59 | disposition home or self-care (01) | LOC: WOU 08:00 | PROVIDERS: ATTEND Podiatrist Foot & Ankle Surgery | DX: G60.9 Hereditary and idiopathic neuropathy, unspecified (principal); L97.512 Non-pressure chronic ulcer of other part of right foot with fat layer exposed; M86.671 Other chronic osteomyelitis, right ankle and foot; L84 Corns and callosities; B35.1 Tinea unguium; Z89.421 Acquired absence of other right toe(s) | CPT/HCPCS: 11042 ==

== ENCOUNTER 2021-04-14 13:00 | Outpatient (CLI) | payer MEDICARE, BC ==
[~2021-04-14 13:00] MED LIST changes: -AMPI1VIA12; +AMPI1VIA26
== END 2021-04-14 23:59 | disposition home or self-care (01) ==
LOC: WOU 13:00
PROVIDERS: ATTEND Podiatrist Foot & Ankle Surgery
DX: M86.671 Other chronic osteomyelitis, right ankle and foot (principal); G60.9 Hereditary and idiopathic neuropathy, unspecified; Z89.421 Acquired absence of other right toe(s); B35.1 Tinea unguium; L84 Corns and callosities
CPT/HCPCS: G0463

== ENCOUNTER 2021-04-17 08:00 | Outpatient (CLI) | payer MEDICARE, BC ==
[~2021-04-17 08:00] MED LIST changes: +AMPI1VIA12; -AMPI1VIA26
[2021-04-17 09:09] LABS: BASOPHILS # (AUTO) 0.1 K/uL (0.0-0.2); BASOPHILS % (AUTO) 0.9 % (0.0-2.0); EOSINOPHILS % (AUTO) 2.8 % (0.0-6.0); HEMATOCRIT 44 % (39-51); HEMOGLOBIN 14.1 g/dL (13.5-17.5); LYMPHOCYTES # (AUTO) 1.4 K/uL (0.8-4.8); MEAN CORPUSCULAR HGB CONC 33 g/dl (31.0-36.0); MEAN CORPUSCULAR VOLUME 92 fL (80-96); MONOCYTES # (AUTO) 0.6 K/uL (0.1-1.30); MONOCYTES % (AUTO) 8.9 % (2.0-12.0); NEUTROPHILS # (AUTO) 4.6 K/uL (1.8-8.9); NEUTROPHILS % (AUTO) 67.4 % (43.0-81.0); PLATELET COUNT (AUTO) 189 K/uL (150-450); RED BLOOD CELL COUNT(AUTO) 4.71 MIL/uL (4.5-6.0); WHITE BLOOD COUNT (AUTO) 6.8 K/uL (4.3-11.0)
== END 2021-04-17 23:59 | disposition home or self-care (01) ==
LOC: WOU 08:00
PROVIDERS: ATTEND Podiatrist Foot & Ankle Surgery
DX: M86.671 Other chronic osteomyelitis, right ankle and foot (principal); G60.9 Hereditary and idiopathic neuropathy, unspecified; L84 Corns and callosities; B35.1 Tinea unguium; Z89.421 Acquired absence of other right toe(s)
CPT/HCPCS: 36415; 84145; 85025; 85652; 86140; 87040; G0463

== ENCOUNTER 2021-05-01 08:00 | Outpatient (CLI) | payer MEDICARE, BC ==
[~2021-05-01 08:00] MED LIST changes: -AMPI1VIA12; +AMPI1VIA26
[2021-05-01 09:02] LABS: BASOPHILS % (AUTO) 0.5 % (0.0-2.0); EOSINOPHILS % (AUTO) 4.1 % (0.0-6.0); HEMATOCRIT 47 % (39-51); HEMOGLOBIN 15.1 g/dL (13.5-17.5); LYMPHOCYTES # (AUTO) 1.4 K/uL (0.8-4.8); LYMPHOCYTES % (AUTO) 21.7 % (20.0-44.0); MEAN CORPUSCULAR HGB CONC 32 g/dl (31.0-36.0); MEAN CORPUSCULAR VOLUME 93 fL (80-96); MONOCYTES # (AUTO) 0.8 K/uL (0.1-1.30); MONOCYTES % (AUTO) 12.5 % (2.0-12.0); NEUTROPHILS % (AUTO) 61.2 % (43.0-81.0); PLATELET COUNT (AUTO) 200 K/uL (150-450); RED BLOOD CELL COUNT(AUTO) 5.07 MIL/uL (4.5-6.0); WHITE BLOOD COUNT (AUTO) 6.5 K/uL (4.3-11.0)
== END 2021-05-01 23:59 | disposition home or self-care (01) ==
LOC: WOU 08:00
PROVIDERS: ATTEND Podiatrist Foot & Ankle Surgery
DX: Z47.81 Encounter for orthopedic aftercare following surgical amputation (principal); M86.671 Other chronic osteomyelitis, right ankle and foot; B35.1 Tinea unguium; L84 Corns and callosities; G60.9 Hereditary and idiopathic neuropathy, unspecified; Z89.421 Acquired absence of other right toe(s); I10 Essential (primary) hypertension; M10.9 Gout, unspecified; Z87.891 Personal history of nicotine dependence; Z82.49 Family history of ischemic heart disease and other diseases of the circulatory system; K58.9 Irritable bowel syndrome, unspecified; Z79.899 Other long term (current) drug therapy
CPT/HCPCS: 36415; 84145; 85025; 85652; 86140; 87040; G0463

== ENCOUNTER 2021-05-27 13:55 | Outpatient (CLI) | payer MEDICARE, BC | END 2021-05-27 23:59 | disposition home or self-care (01) | LOC: WOU 13:55 | PROVIDERS: ATTEND Podiatrist Foot & Ankle Surgery | DX: M86.671 Other chronic osteomyelitis, right ankle and foot (principal); Z89.421 Acquired absence of other right toe(s); G60.9 Hereditary and idiopathic neuropathy, unspecified; B35.1 Tinea unguium; L84 Corns and callosities; R60.0 Localized edema | CPT/HCPCS: G0463 ==

== ENCOUNTER 2021-11-06 10:00 | Outpatient (CLI) | payer MEDICARE, BC ==
[2021-11-06] MEDS ORDERED: CADEXOMER IODINE UD 5 GM TUBE ONE (10:42)
[2021-11-06 13:47] LABS: BASOPHILS # (AUTO) 0.1 K/uL (0.0-0.2); BASOPHILS % (AUTO) 0.6 % (0.0-2.0); HEMATOCRIT 47 % (39-51); HEMOGLOBIN 15.2 g/dL (13.5-17.5); LYMPHOCYTES # (AUTO) 1.7 K/uL (0.8-4.8); LYMPHOCYTES % (AUTO) 19.7 % (20.0-44.0); MEAN CORPUSCULAR HGB CONC 33 g/dl (31.0-36.0); MEAN CORPUSCULAR VOLUME 91 fL (80-96); MONOCYTES # (AUTO) 0.9 K/uL (0.1-1.30); MONOCYTES % (AUTO) 10.8 % (2.0-12.0); NEUTROPHILS # (AUTO) 5.3 K/uL (1.8-8.9); NEUTROPHILS % (AUTO) 62.9 % (43.0-81.0); PLATELET COUNT (AUTO) 223 K/uL (150-450); RED BLOOD CELL COUNT(AUTO) 5.15 MIL/uL (4.5-6.0); WHITE BLOOD COUNT (AUTO) 8.5 K/uL (4.3-11.0)
== END 2021-11-06 23:59 | disposition home or self-care (01) ==
LOC: WOU 10:00
PROVIDERS: ATTEND Podiatrist Foot & Ankle Surgery
DX: M86.671 Other chronic osteomyelitis, right ankle and foot (principal); G90.09 Other idiopathic peripheral autonomic neuropathy; L97.522 Non-pressure chronic ulcer of other part of left foot with fat layer exposed; B35.1 Tinea unguium; Z89.421 Acquired absence of other right toe(s); L84 Corns and callosities
CPT/HCPCS: 11042; 36415; 85025-TC; 85652-TC; 87070-TC; 87075-TC

== ENCOUNTER 2021-11-20 09:10 | Outpatient (CLI) | payer MEDICARE, BC ==
[2021-11-20] MEDS ORDERED: CADEXOMER IODINE UD 5 GM TUBE ONE (09:43)
== END 2021-11-20 23:59 | disposition home or self-care (01) ==
LOC: WOU 09:10
PROVIDERS: ATTEND Podiatrist Foot & Ankle Surgery
DX: G90.09 Other idiopathic peripheral autonomic neuropathy (principal); L97.522 Non-pressure chronic ulcer of other part of left foot with fat layer exposed; M86.671 Other chronic osteomyelitis, right ankle and foot; B35.1 Tinea unguium
CPT/HCPCS: 11042

== ENCOUNTER 2021-12-04 09:30 | Outpatient (CLI) | payer MEDICARE, BC ==
[2021-12-04] MEDS ORDERED: CADEXOMER IODINE UD 5 GM TUBE ONE (09:51)
== END 2021-12-04 23:59 | disposition home or self-care (01) ==
LOC: WOU 09:30
PROVIDERS: ATTEND Podiatrist Foot & Ankle Surgery
DX: G90.09 Other idiopathic peripheral autonomic neuropathy (principal); L97.522 Non-pressure chronic ulcer of other part of left foot with fat layer exposed; M86.672 Other chronic osteomyelitis, left ankle and foot; B35.1 Tinea unguium; I10 Essential (primary) hypertension; Z87.891 Personal history of nicotine dependence
CPT/HCPCS: 11042

== ENCOUNTER → 2021-12-18 | Outpatient (CLI) | payer MEDICARE, BC ==
[~2021-12-18] MED LIST changes: +CADEXOMER IODINE UD 5 GM TUBE ONE
== END | disposition home or self-care (01) ==
LOC: WOU 09:00
PROVIDERS: ATTEND Podiatrist Foot & Ankle Surgery
DX: G90.09 Other idiopathic peripheral autonomic neuropathy (principal); L97.522 Non-pressure chronic ulcer of other part of left foot with fat layer exposed; M86.671 Other chronic osteomyelitis, right ankle and foot; B35.1 Tinea unguium; I10 Essential (primary) hypertension
CPT/HCPCS: 11042

== ENCOUNTER 2022-01-01 09:15 | Outpatient (CLI) | payer MEDICARE, BC ==
[~2022-01-01 09:15] MED LIST changes: -CADEXOMER IODINE UD 5 GM TUBE ONE
[2022-01-01] MEDS ORDERED: CADEXOMER IODINE UD 5 GM TUBE ONE (09:24)
== END 2022-01-01 23:59 | disposition home or self-care (01) ==
LOC: WOU 09:15
PROVIDERS: ATTEND Podiatrist Foot & Ankle Surgery
DX: G90.09 Other idiopathic peripheral autonomic neuropathy (principal); L97.522 Non-pressure chronic ulcer of other part of left foot with fat layer exposed; M86.671 Other chronic osteomyelitis, right ankle and foot; B35.1 Tinea unguium
CPT/HCPCS: 11042